=== PATIENT | male | born 1955 | race Asian ===

== ENCOUNTER 2023-01-25 12:30 | Inpatient (IN) | payer OTHER ==
[~2023-01-25] VITALS: Ht 179.1 cm; Wt 130.8 kg
[~2023-01-25 12:30] MED LIST: ALBMDI INH; AMIO200T68 PO; AZIT500T10 PO; CARV12.548 PO; CYAN25006 SL; DAPA10TA PO; DICL100G60 TP; FEOSOL; FEOSOL PO; FLUT1BLS3 INH; FOLI0.4T6 PO; FURO-149 PO; LEVO100C4 PO; MULT-1117 PO; SODI10PO PO; VITA100T6 PO; VITA1CAP PO; WARF4TAB72 PO
[2023-01-25 12:43] VITALS: BP_SYST 140; PULSE 96; RESP 20; TEMP 97.8; O2SAT 89
[2023-01-25 14:16] LABS: ABG O2 SAT% ESTIMATE 93.4 % (94.0-100.0); BLOOD GAS HCO3 19.9 mmol/L (21.0-27.0); BLOOD GAS PCO2 39.1 mmHg (32.0-45.0); BLOOD GAS PH 7.325 (7.350-7.450); BLOOD GAS PO2 71.7 mmHg (75.0-100.0)
[2023-01-25 14:17] LABS: ALLEN'S TEST POSITIVE (P); BLOOD GAS BASE EXCESS -5.6 mmol/L (-3.0-3.0)
[2023-01-25 14:50] LABS: BASOPHILS % (AUTO) 0.5 % (0.0-2.0); EOSINOPHILS % (AUTO) 0.2 % (0.0-4.0); HEMOGLOBIN 11.7 g/dL (14.0-18.0); LYMPHOCYTES # (AUTO) 0.5 K/uL (1.0-5.5); LYMPHOCYTES % (AUTO) 13.4 % (20.5-51.5); MEAN CORPUSCULAR HEMOGLOBIN 33 pg (27-31); MEAN CORPUSCULAR HGB CONC 32 % (32-36); MEAN CORPUSCULAR VOLUME 103 fL (79.0-98.0); MONOCYTES # (AUTO) 0.5 K/uL (0.0-1.0); MONOCYTES % (AUTO) 13.6 % (1.7-9.3); NEUTROPHILS # (AUTO) 2.8 K/uL (1.8-7.7); NEUTROPHILS % (AUTO) 72.3 % (40.0-70.0); PLATELET COUNT (AUTO) 116 K/uL (130-430); RED BLOOD CELL COUNT(AUTO) 3.58 MIL/uL (4.2-6.2); RED CELL DISTRIBUTION WIDTH 15.6 % (9.0-15.0); WHITE BLOOD COUNT (AUTO) 3.9 K/uL (4.8-10.8)
[2023-01-25 14:59] LABS: ALANINE AMINOTRANSFERASE 118 U/L (12-78); ANION GAP 8 (5-15); ASPARTATE AMINOTRANSFERASE 162 U/L (10-37); CALCIUM 8.1 mg/dL (8.4-11.0); CARBON DIOXIDE 22 mmol/L (23-29); CHLORIDE 102 mmol/L (98-107); CREATININE 1.26 mg/dL (0.55-1.30); GFR AFRICAN AMERICAN 73 mL/min (>90); GFR NON AFRICAN-AMERICAN 61 mL/min (>90); GLUCOSE 119 mg/dL (74-106); POTASSIUM 4.3 mmol/L (3.5-5.1); SODIUM SERUM 132 mmol/L (136-145); TOTAL BILIRUBIN 1.5 mg/dL (0.0-1.0); TOTAL PROTEIN, SERUM 8.1 g/dL (6.4-8.3); UREA NITROGEN, BLOOD 26 mg/dL (8-21)
[2023-01-25] MEDS ORDERED: FUROSEMIDE 40 MG/4 ML VIAL IVP ONE (15:45)
[2023-01-25] MEDS ORDERED: ONDANSETRON HCL 4 MG/2 ML VIAL IVP PRN ×2 (16:30→19:45)
[2023-01-25 17:28] VITALS: PULSE 84; O2SAT 99
[2023-01-25] MEDS ORDERED: SPIRONOLACTONE 25 MG TABLET (ALDACTONE) PO ONE (17:30)
[2023-01-25 18:52] LABS: BILIRUBIN,URINE NEGATIVE (NEGATIVE); BLOOD, URINE 1+ (NEGATIVE); CLARITY/URINE CLEAR (CLEAR); COLOR,URINE YELLOW (YELLOW); GLUCOSE,URINE TRACE (NEGATIVE); KETONES,URINE NEGATIVE (NEGATIVE); LEUKOCYTE ESTERASE ,URINE NEGATIVE (NEGATIVE); NITRITE, URINE NEGATIVE (NEGATIVE); PROTEIN URINE 2+ (NEGATIVE)
[2023-01-25 19:20] LABS: BACTERIA,URINE FEW /HPF (None Seen); RBC,URINE 0-3 /HPF (0-3); WBC,URINE 0-3 /HPF (0-3)
[2023-01-25 19:21] LABS: COARSE GRANULAR CASTS,URINE 0-10 /LPF (None Seen); FINE GRANULAR CASTS,URINE 0-10 /LPF (None Seen); MUCUS,URINE None Seen /LPF (None Seen)
[2023-01-25] MEDS ORDERED: ACETAMINOPHEN 325 MG TABLET PO PRN ×2 (19:45→20:00)
[2023-01-25] MEDS ORDERED: HYDROcodone/ACETAMIN 5-325 MG TAB (NORCO/ VICODIN) PO PRN ×2 (19:45→20:00)
[2023-01-25] MEDS ORDERED: NACL 0.9% 1,000 ML IV SCH (20:00)
[2023-01-25] MEDS: ALBUTEROL SULFATE 0.083% 2.5 MG/3 ML VIAL.NEB INH SCH (20:03)
[2023-01-25] MEDS: BUDESONIDE 0.5 MG/2 ML AMPUL.NEB INH SCH (20:04)
[2023-01-25] MEDS ORDERED: MULTIVITAMINS TAB 1 TABLET PO ONE (20:30)
[2023-01-25 21:36] VITALS: BP_SYST 131; PULSE 93; RESP 20; TEMP 99; O2SAT 96
[2023-01-25] MEDS ORDERED: AZITHROMYCIN 500 MG/VIAL (ZITHROMAX) IV ONE (23:32)
[2023-01-25] MEDS ORDERED: cefTRIAXone 1 GM VIAL ONE (23:32)
[2023-01-25] MEDS: AZITHROMYCIN 500 MG in NS 250 ML IV SCH (23:57)
[2023-01-25] MEDS: ASCORBIC ACID 500 MG TABLET PO SCH (23:58)
[2023-01-26] VITALS (10 sets, daily range): BP systolic 110–114; PULSE 64–93; RESP 18–22; TEMP 98–100.2; O2SAT 96–100
[2023-01-26] MEDS: cefTRIAXone 1 GM in D5W 50 ML IV SCH ×2 (00:47→22:33)
[2023-01-26] MEDS: ALBUTEROL SULFATE 0.083% 2.5 MG/3 ML VIAL.NEB INH SCH ×4 (01:38→19:31)
[2023-01-26 04:29] LABS: BASOPHILS % (AUTO) 0.3 % (0.0-2.0); EOSINOPHILS % (AUTO) 0.1 % (0.0-4.0); HEMATOCRIT 37.5 % (36-54); HEMOGLOBIN 11.7 g/dL (14.0-18.0); LYMPHOCYTES # (AUTO) 0.5 K/uL (1.0-5.5); LYMPHOCYTES % (AUTO) 11.5 % (20.5-51.5); MEAN CORPUSCULAR HEMOGLOBIN 32 pg (27-31); MEAN CORPUSCULAR HGB CONC 31 % (32-36); MEAN CORPUSCULAR VOLUME 104 fL (79.0-98.0); MONOCYTES # (AUTO) 0.6 K/uL (0.0-1.0); MONOCYTES % (AUTO) 13.1 % (1.7-9.3); NEUTROPHILS # (AUTO) 3.2 K/uL (1.8-7.7); PLATELET COUNT (AUTO) 117 K/uL (130-430); RED BLOOD CELL COUNT(AUTO) 3.62 MIL/uL (4.2-6.2); RED CELL DISTRIBUTION WIDTH 15.6 % (9.0-15.0); WHITE BLOOD COUNT (AUTO) 4.2 K/uL (4.8-10.8)
[2023-01-26 04:44] LABS: ALBUMIN 3.1 g/dL (3.4-4.8); CALCIUM 8.7 mg/dL (8.4-11.0); CREATININE 1.42 mg/dL (0.55-1.30); POTASSIUM 3.8 mmol/L (3.5-5.1); TOTAL BILIRUBIN 1.6 mg/dL (0.0-1.0); TOTAL PROTEIN, SERUM 8.3 g/dL (6.4-8.3)
[2023-01-26 06:52] LABS: INR 6.4 (0.80-1.20); PROTHROMBIN TIME 60.6 SECS (9.5-12.5)
[2023-01-26] MEDS: BUDESONIDE 0.5 MG/2 ML AMPUL.NEB INH SCH ×2 (08:18→19:32)
[2023-01-26] MEDS ORDERED: FLUTICASONE/VILANTEROL 1 EACH BLST.W.DEV INH SCH (09:00)
[2023-01-26] MEDS ORDERED: DAPAGLIFLOZIN PROPANEDIOL NF 5 MG TABLET PO SCH (09:00)
[2023-01-26] MEDS ORDERED: CARVEDILOL 12.5 MG TABLET (COREG) PO SCH (09:00)
[2023-01-26] MEDS ORDERED: FUROSEMIDE 20 MG/2 ML VIAL IVP SCH (09:00)
[2023-01-26] MEDS ORDERED: ASCORBIC ACID 500 MG TABLET PO SCH (09:00)
[2023-01-26] MEDS: EMPAGLIFLOZIN 10 MG TABLET PO SCH (10:11)
[2023-01-26] MEDS: MULTIVITAMINS TAB 1 TABLET PO SCH (10:13)
[2023-01-26] MEDS: LORATADINE 10 MG TABLET PO SCH (10:15)
[2023-01-26] MEDS: ASCORBIC ACID 500 MG TABLET PO SCH ×2 (10:15→21:10)
[2023-01-26] MEDS: ASPIRIN 81 MG TAB.CHEW PO SCH (10:15)
[2023-01-26] MEDS: DEXAMETHASONE SOD PHOSPHATE 10 MG/ML VIAL IVP SCH (10:16)
[2023-01-26] MEDS ORDERED: FUROSEMIDE 20 MG/2 ML VIAL IVP ONE (12:00)
[2023-01-26] MEDS ORDERED: WARFARIN SODIUM 4 MG TABLET PO SCH (18:00)
[2023-01-26] MEDS: FUROSEMIDE 40 MG/4 ML VIAL IVP SCH (21:11)
[2023-01-26] MEDS: AZITHROMYCIN 500 MG in NS 250 ML IV SCH (23:01)
[2023-01-27] VITALS (11 sets, daily range): BP systolic 107–116; PULSE 80–99; RESP 16–20; TEMP 97.7–98.2; O2SAT 90–100
[2023-01-27] MEDS: ALBUTEROL SULFATE 0.083% 2.5 MG/3 ML VIAL.NEB INH SCH ×4 (04:16→20:18)
[2023-01-27 06:00] LABS: BASOPHILS % (AUTO) 0.3 % (0.0-2.0); EOSINOPHILS % (AUTO) 0.1 % (0.0-4.0); HEMATOCRIT 38.1 % (36-54); HEMOGLOBIN 11.8 g/dL (14.0-18.0); LYMPHOCYTES # (AUTO) 0.3 K/uL (1.0-5.5); LYMPHOCYTES % (AUTO) 8.3 % (20.5-51.5); MEAN CORPUSCULAR HEMOGLOBIN 32 pg (27-31); MEAN CORPUSCULAR HGB CONC 31 % (32-36); MEAN CORPUSCULAR VOLUME 102 fL (79.0-98.0); MONOCYTES # (AUTO) 0.5 K/uL (0.0-1.0); MONOCYTES % (AUTO) 13.4 % (1.7-9.3); NEUTROPHILS # (AUTO) 2.6 K/uL (1.8-7.7); NEUTROPHILS % (AUTO) 77.9 % (40.0-70.0); PLATELET COUNT (AUTO) 108 K/uL (130-430); RED BLOOD CELL COUNT(AUTO) 3.73 MIL/uL (4.2-6.2); RED CELL DISTRIBUTION WIDTH 15.5 % (9.0-15.0); WHITE BLOOD COUNT (AUTO) 3.4 K/uL (4.8-10.8)
[2023-01-27 06:29] LABS: ALBUMIN 2.9 g/dL (3.4-4.8); CALCIUM 8.5 mg/dL (8.4-11.0); CREATININE 1.35 mg/dL (0.55-1.30); POTASSIUM 3.7 mmol/L (3.5-5.1); TOTAL BILIRUBIN 1.2 mg/dL (0.0-1.0); TOTAL PROTEIN, SERUM 7.9 g/dL (6.4-8.3)
[2023-01-27 06:59] LABS: INR 8.9 (0.80-1.20); PROTHROMBIN TIME 83.2 SECS (9.5-12.5)
[2023-01-27] MEDS: BUDESONIDE 0.5 MG/2 ML AMPUL.NEB INH SCH ×2 (07:21→20:18)
[2023-01-27] MEDS ORDERED: AMIODARONE HCL 200 MG TABLET PO SCH (09:00)
[2023-01-27] MEDS: ASPIRIN 81 MG TAB.CHEW PO SCH (09:21)
[2023-01-27] MEDS: ASCORBIC ACID 500 MG TABLET PO SCH ×2 (09:22→22:13)
[2023-01-27] MEDS: MULTIVITAMINS TAB 1 TABLET PO SCH (09:22)
[2023-01-27] MEDS: FUROSEMIDE 40 MG/4 ML VIAL IVP SCH ×2 (09:23→22:13)
[2023-01-27] MEDS: LORATADINE 10 MG TABLET PO SCH (09:23)
[2023-01-27] MEDS: DEXAMETHASONE SOD PHOSPHATE 10 MG/ML VIAL IVP SCH (09:26)
[2023-01-27] MEDS: EMPAGLIFLOZIN 10 MG TABLET PO SCH (09:28)
[2023-01-27] MEDS ORDERED: PHYTONADIONE 10 MG/ML AMP SUBCUT ONE (10:30)
[2023-01-27 17:06] LABS: HEPATITIS A AB, IgM Negative (Negative); HEPATITIS B CORE AB, IgM Negative (Negative); HEPATITIS B SURFACE AG Negative (Negative)
[2023-01-27] MEDS: cefTRIAXone 1 GM in D5W 50 ML IV SCH (22:12)
[2023-01-27] MEDS: AZITHROMYCIN 500 MG in NS 250 ML IV SCH (22:14)
[2023-01-28] VITALS (9 sets, daily range): BP systolic 102–117; PULSE 89–106; RESP 18–20; TEMP 97.7–98.1; O2SAT 96–100
[2023-01-28] MEDS: ALBUTEROL SULFATE 0.083% 2.5 MG/3 ML VIAL.NEB INH SCH ×3 (01:35→12:06)
[2023-01-28 06:25] LABS: BASOPHILS % (AUTO) 0.1 % (0.0-2.0); HEMATOCRIT 35.7 % (36-54); HEMOGLOBIN 11.3 g/dL (14.0-18.0); LYMPHOCYTES # (AUTO) 0.3 K/uL (1.0-5.5); LYMPHOCYTES % (AUTO) 5.1 % (20.5-51.5); MEAN CORPUSCULAR HEMOGLOBIN 32 pg (27-31); MEAN CORPUSCULAR HGB CONC 32 % (32-36); MEAN CORPUSCULAR VOLUME 102 fL (79.0-98.0); MONOCYTES # (AUTO) 0.7 K/uL (0.0-1.0); MONOCYTES % (AUTO) 11.2 % (1.7-9.3); NEUTROPHILS # (AUTO) 4.9 K/uL (1.8-7.7); NEUTROPHILS % (AUTO) 83.6 % (40.0-70.0); PLATELET COUNT (AUTO) 107 K/uL (130-430); RED BLOOD CELL COUNT(AUTO) 3.52 MIL/uL (4.2-6.2); RED CELL DISTRIBUTION WIDTH 15.3 % (9.0-15.0); WHITE BLOOD COUNT (AUTO) 5.8 K/uL (4.8-10.8)
[2023-01-28 06:34] LABS: PROTHROMBIN TIME 20.1 SECS (9.5-12.5)
[2023-01-28 07:01] LABS: ALBUMIN 2.9 g/dL (3.4-4.8); CALCIUM 8.3 mg/dL (8.4-11.0); CREATININE 1.32 mg/dL (0.55-1.30); POTASSIUM 3.5 mmol/L (3.5-5.1); TOTAL BILIRUBIN 1.4 mg/dL (0.0-1.0); TOTAL PROTEIN, SERUM 7.9 g/dL (6.4-8.3)
[2023-01-28 07:07] LABS: FOLATE (FOLIC ACID) >20.0 ng/mL (>3.0)
[2023-01-28 07:07] LABS: HEPATITIS C VIRUS AB Non Reactive (Non Reactive)
[2023-01-28] MEDS: BUDESONIDE 0.5 MG/2 ML AMPUL.NEB INH SCH (07:36)
[2023-01-28] MEDS ORDERED: PHYTONADIONE Non-Formulary 5 MG TABLET PO SCH (09:00)
[2023-01-28] MEDS: ASCORBIC ACID 500 MG TABLET PO SCH (09:29)
[2023-01-28] MEDS: LORATADINE 10 MG TABLET PO SCH (09:29)
[2023-01-28] MEDS: ASPIRIN 81 MG TAB.CHEW PO SCH (09:29)
[2023-01-28] MEDS: MULTIVITAMINS TAB 1 TABLET PO SCH (09:29)
[2023-01-28] MEDS: DEXAMETHASONE SOD PHOSPHATE 10 MG/ML VIAL IVP SCH (09:30)
[2023-01-28] MEDS: FUROSEMIDE 40 MG/4 ML VIAL IVP SCH (09:30)
[2023-01-28] MEDS: EMPAGLIFLOZIN 10 MG TABLET PO SCH ×2 (09:36→09:50)
[2023-01-28] MEDS ORDERED: PHYTONADIONE (Vitamin K) Oral Solution PO SCH (11:00)
[2023-01-28] MEDS ORDERED: FURO-149 PO (12:50)
[2023-01-28] MEDS ORDERED: ZIT250 PO (12:55)
[2023-01-28] MEDS ORDERED: METH-776 PO (12:55)
[2023-01-28] MEDS ORDERED: FLU VACC QS2023-24(6MOS UP)/PF 0.5 ML/SYR SYRINGE I.M. ONE (13:30)
[2023-01-28] MEDS ORDERED: FUROSEMIDE 40 MG TABLET PO SCH (21:00)
== END 2023-01-28 16:50 | disposition home or self-care (01) | DRG 177 ==
LOC: SED 12:30 → STU 16:17
PROVIDERS: ADMIT Family Medicine; ATTEND Family Medicine
DX: U07.1 COVID-19 (principal); I50.33 Acute on chronic diastolic (congestive) heart failure; J96.01 Acute respiratory failure with hypoxia; Z68.41 Body mass index [BMI] 40.0-44.9, adult; E87.1 Hypo-osmolality and hyponatremia; I13.0 Hypertensive heart and chronic kidney disease with heart failure and stage 1 through stage 4 chronic kidney disease, or unspecified chronic kidney disease; E44.1 Mild protein-calorie malnutrition; E03.9 Hypothyroidism, unspecified; E66.01 Morbid (severe) obesity due to excess calories; D69.6 Thrombocytopenia, unspecified; R74.01 Elevation of levels of liver transaminase levels; N18.9 Chronic kidney disease, unspecified; E11.22 Type 2 diabetes mellitus with diabetic chronic kidney disease; I35.0 Nonrheumatic aortic (valve) stenosis; E86.0 Dehydration; Z79.899 Other long term (current) drug therapy
CPT/HCPCS: 36415; 36600; 71046-TC; 76705; 80053; 80074; 81000; 81001; 81015; 82607; 82746; 82803; 83880; 84484; 85025; 85379; 85610-TC; 85730-TC; 87040; 93005; 94010; 94640; 94760; 96374; 99291; G0378; J0456; J0696; J1100; J1940; J3430; J7050; J7060; J7626

== ENCOUNTER 2023-03-03 21:57 | Inpatient (IN) | payer OTHER ==
[~2023-03-03] VITALS: Ht 177.8 cm; Wt 136.1 kg
[~2023-03-03 21:57] MED LIST changes: -AZIT500T10 PO; -CARV12.548 PO; -FEOSOL; -FEOSOL PO; -LEVO100C4 PO; +METH-776 PO; +ZIT250 PO
[2023-03-03 22:05] VITALS: BP_SYST 104; PULSE 89; RESP 20; TEMP 97; O2SAT 99
[2023-03-04 00:28] LABS: BASOPHILS % (AUTO) 0.3 % (0.0-2.0); EOSINOPHILS # (AUTO) 0.2 K/uL (0.0-0.4); EOSINOPHILS % (AUTO) 1.2 % (0.0-4.0); HEMATOCRIT 33.7 % (36-54); HEMOGLOBIN 11.1 g/dL (14.0-18.0); LYMPHOCYTES # (AUTO) 0.3 K/uL (1.0-5.5); LYMPHOCYTES % (AUTO) 2.2 % (20.5-51.5); MEAN CORPUSCULAR HEMOGLOBIN 34 pg (27-31); MEAN CORPUSCULAR HGB CONC 33 % (32-36); MEAN CORPUSCULAR VOLUME 104 fL (79.0-98.0); MONOCYTES # (AUTO) 0.9 K/uL (0.0-1.0); MONOCYTES % (AUTO) 6.1 % (1.7-9.3); NEUTROPHILS # (AUTO) 13.6 K/uL (1.8-7.7); NEUTROPHILS % (AUTO) 90.2 % (40.0-70.0); PLATELET COUNT (AUTO) 179 K/uL (130-430); RED BLOOD CELL COUNT(AUTO) 3.24 MIL/uL (4.2-6.2); RED CELL DISTRIBUTION WIDTH 17.2 % (9.0-15.0); WHITE BLOOD COUNT (AUTO) 15.1 K/uL (4.8-10.8)
[2023-03-04 01:14] LABS: ANION GAP 7 (5-15); CALCIUM 8.1 mg/dL (8.4-11.0); CARBON DIOXIDE 31 mmol/L (23-29); CHLORIDE 93 mmol/L (98-107); CREATININE 3.16 mg/dL (0.55-1.30); GFR AFRICAN AMERICAN 25 mL/min (>90); GLUCOSE 104 mg/dL (74-106); SODIUM SERUM 131 mmol/L (136-145); UREA NITROGEN, BLOOD 75 mg/dL (8-21)
[2023-03-04] MEDS ORDERED: HYDROcodone/ACETAMIN 5-325 MG TAB (NORCO/ VICODIN) PO ONE ×2 (01:15→06:15)
[2023-03-04 01:27] LABS: GFR NON AFRICAN-AMERICAN 21 mL/min (>90); POTASSIUM 5.8 mmol/L (3.5-5.1)
[2023-03-04] MEDS ORDERED: ALBU2.5V7 HHN (01:31)
[2023-03-04] MEDS ORDERED: FURO40TA5 PO (01:31)
[2023-03-04] MEDS ORDERED: DAPA5TAB PO (01:31)
[2023-03-04] MEDS ORDERED: FLUT16SP16 NS (01:31)
[2023-03-04] MEDS ORDERED: METO5TAB7 PO (01:31)
[2023-03-04] MEDS ORDERED: FLUT50BL IH (01:32)
[2023-03-04] MEDS ORDERED: FUROSEMIDE 100 MG/10 ML VIAL IVP ONE (01:45)
[2023-03-04] MEDS ORDERED: SODIUM ZIRCONIUM CYCLOSILICATE 10 GM POWD.PACK PO ONE (01:45)
[2023-03-04 01:49] LABS: PROTHROMBIN TIME 47.5 SECS (9.5-12.5)
[2023-03-04 01:50] LABS: INR 4.9 (0.80-1.20)
[2023-03-04 02:49] LABS: BILIRUBIN,URINE NEGATIVE (NEGATIVE); BLOOD, URINE NEGATIVE (NEGATIVE); COLOR,URINE YELLOW (YELLOW); GLUCOSE,URINE NEGATIVE (NEGATIVE); KETONES,URINE NEGATIVE (NEGATIVE); LEUKOCYTE ESTERASE ,URINE NEGATIVE (NEGATIVE); NITRITE, URINE NEGATIVE (NEGATIVE); PH,URINE 5.5 (5.0-8.0); PROTEIN URINE TRACE (NEGATIVE); UROBILINOGEN,URINE 0.2 (0.2-1.0)
[2023-03-04 02:57] LABS: CLARITY/URINE HAZY (CLEAR)
[2023-03-04 02:58] LABS: BACTERIA,URINE None Seen /HPF (None Seen); RBC,URINE 0-3 /HPF (0-3); WBC,URINE 0-3 /HPF (0-3)
[2023-03-04 02:59] LABS: HYALINE CASTS, URINE 0-10 /LPF (None Seen)
[2023-03-04 08:07] LABS: INR 4.2 (0.80-1.20); PROTHROMBIN TIME 40.7 SECS (9.5-12.5)
[2023-03-04] MEDS ORDERED: PIPERACILLIN/TAZOBACTAM 2.25 GM/ D5W 50 ML IV SCH ×2 (12:00)
[2023-03-04] MEDS ORDERED: FUROSEMIDE 100 MG in D5W 90 ML IV SCH (14:30)
[2023-03-04] MEDS ORDERED: FUROSEMIDE 40 MG/4 ML VIAL IVP ONE (15:00)
[2023-03-04] MEDS ORDERED: metOLazone 5 MG TABLET PO ONE (15:00)
[2023-03-04] MEDS ORDERED: FUROSEMIDE 100 MG in D5W 90 ML IV ONE (15:30)
[2023-03-04] MEDS ORDERED: ALBUMIN HUMAN 5% 250 ML IV ONE (18:00)
[2023-03-04] MEDS: FUROSEMIDE 100 MG in D5W 90 ML IV SCH (23:30)
[2023-03-05] MEDS: ceFAZolin SODIUM 2 GM in D5W 100 ML IV SCH ×3 (00:46→21:12)
[2023-03-05 00:58] VITALS: BP_SYST 108; PULSE 96; RESP 20; TEMP 97.2; O2SAT 97
[2023-03-05 05:41] LABS: BASOPHILS % (AUTO) 0.2 % (0.0-2.0); HEMATOCRIT 33.9 % (36-54); LYMPHOCYTES # (AUTO) 0.3 K/uL (1.0-5.5); LYMPHOCYTES % (AUTO) 2.4 % (20.5-51.5); MEAN CORPUSCULAR HEMOGLOBIN 34 pg (27-31); MEAN CORPUSCULAR HGB CONC 32 % (32-36); MEAN CORPUSCULAR VOLUME 104 fL (79.0-98.0); MONOCYTES % (AUTO) 8.3 % (1.7-9.3); NEUTROPHILS % (AUTO) 89.1 % (40.0-70.0); PLATELET COUNT (AUTO) 160 K/uL (130-430); RED BLOOD CELL COUNT(AUTO) 3.26 MIL/uL (4.2-6.2); RED CELL DISTRIBUTION WIDTH 17.7 % (9.0-15.0); WHITE BLOOD COUNT (AUTO) 12.3 K/uL (4.8-10.8)
[2023-03-05 06:02] LABS: CALCIUM 8.7 mg/dL (8.4-11.0); CREATININE 3.1 mg/dL (0.55-1.30); POTASSIUM 4.9 mmol/L (3.5-5.1)
[2023-03-05 06:05] LABS: ALBUMIN 2.9 g/dL (3.4-4.8); TOTAL PROTEIN, SERUM 8.2 g/dL (6.4-8.3)
[2023-03-05 08:00] VITALS: O2SAT 95
[2023-03-05] MEDS: FUROSEMIDE 100 MG in D5W 90 ML IV SCH ×3 (09:47→22:19)
[2023-03-05 11:26] LABS: CHLORIDE,URINE RANDOM 31 mmol/L (55-125); POTASSIUM,URINE RANDOM 82 mmol/L (12-75)
[2023-03-05 12:12] VITALS: BP_SYST 105; PULSE 84; RESP 19; TEMP 97.4; O2SAT 97
[2023-03-05] MEDS ORDERED: metOLazone 5 MG TABLET PO ONE (12:30)
[2023-03-05 15:35] LABS: BASOPHILS % (AUTO) 0.3 % (0.0-2.0); EOSINOPHILS % (AUTO) 0.2 % (0.0-4.0); HEMATOCRIT 34.6 % (36-54); HEMOGLOBIN 11.4 g/dL (14.0-18.0); LYMPHOCYTES # (AUTO) 0.3 K/uL (1.0-5.5); MEAN CORPUSCULAR HEMOGLOBIN 34 pg (27-31); MEAN CORPUSCULAR HGB CONC 33 % (32-36); MEAN CORPUSCULAR VOLUME 104 fL (79.0-98.0); MONOCYTES % (AUTO) 9.7 % (1.7-9.3); NEUTROPHILS # (AUTO) 8.9 K/uL (1.8-7.7); NEUTROPHILS % (AUTO) 86.8 % (40.0-70.0); PLATELET COUNT (AUTO) 154 K/uL (130-430); RED BLOOD CELL COUNT(AUTO) 3.32 MIL/uL (4.2-6.2); WHITE BLOOD COUNT (AUTO) 10.2 K/uL (4.8-10.8)
[2023-03-05 16:11] VITALS: BP_SYST 101; PULSE 89; RESP 20; TEMP 97.3; O2SAT 98
[2023-03-05] MEDS: traMADol HCL HCL 50 MG TABLET (ULTRAM) PO PRN (17:03)
[2023-03-05] MEDS: DOPamine PREMIX 250 ML IV PRN (17:45)
[2023-03-05 21:00] VITALS: BP_SYST 110; PULSE 112; RESP 20; O2SAT 97
[2023-03-06] VITALS (9 sets, daily range): BP systolic 111–120; PULSE 102–115; RESP 18–22; TEMP 97.3–98.1; O2SAT 95–100
[2023-03-06] MEDS: FUROSEMIDE 100 MG in D5W 90 ML IV SCH ×5 (04:18→23:11)
[2023-03-06 07:46] LABS: ALBUMIN 2.9 g/dL (3.4-4.8); CALCIUM 8.3 mg/dL (8.4-11.0); CREATININE 2.67 mg/dL (0.55-1.30); POTASSIUM 4.5 mmol/L (3.5-5.1); TOTAL PROTEIN, SERUM 7.7 g/dL (6.4-8.3)
[2023-03-06] MEDS: ceFAZolin SODIUM 2 GM in D5W 100 ML IV SCH ×2 (09:45→21:17)
[2023-03-06] MEDS ORDERED: FUROSEMIDE 100 MG in D5W 90 ML IV SCH (12:46)
[2023-03-06 18:22] LABS: INR 3.8 (0.80-1.20)
[2023-03-06] MEDS: traMADol HCL HCL 50 MG TABLET (ULTRAM) PO PRN (19:17)
[2023-03-06] MEDS: DOPamine PREMIX 250 ML IV PRN (23:07)
[2023-03-07] VITALS (8 sets, daily range): BP systolic 111–130; PULSE 78–99; RESP 16–20; TEMP 96.5–98.2; O2SAT 96–100
[2023-03-07] MEDS: FUROSEMIDE 100 MG in D5W 90 ML IV SCH ×6 (03:09→22:37)
[2023-03-07] MEDS: traMADol HCL HCL 50 MG TABLET (ULTRAM) PO PRN ×2 (03:10→13:28)
[2023-03-07 06:25] LABS: BASOPHILS % (AUTO) 0.2 % (0.0-2.0); EOSINOPHILS % (AUTO) 0.2 % (0.0-4.0); HEMATOCRIT 35.9 % (36-54); HEMOGLOBIN 11.8 g/dL (14.0-18.0); LYMPHOCYTES # (AUTO) 0.4 K/uL (1.0-5.5); LYMPHOCYTES % (AUTO) 4.7 % (20.5-51.5); MEAN CORPUSCULAR HEMOGLOBIN 34 pg (27-31); MEAN CORPUSCULAR HGB CONC 33 % (32-36); MEAN CORPUSCULAR VOLUME 103 fL (79.0-98.0); MONOCYTES # (AUTO) 0.9 K/uL (0.0-1.0); MONOCYTES % (AUTO) 10.7 % (1.7-9.3); NEUTROPHILS # (AUTO) 7.3 K/uL (1.8-7.7); NEUTROPHILS % (AUTO) 84.2 % (40.0-70.0); PLATELET COUNT (AUTO) 164 K/uL (130-430); RED BLOOD CELL COUNT(AUTO) 3.47 MIL/uL (4.2-6.2); RED CELL DISTRIBUTION WIDTH 17.2 % (9.0-15.0); WHITE BLOOD COUNT (AUTO) 8.7 K/uL (4.8-10.8)
[2023-03-07 06:36] LABS: INR 3.4 (0.80-1.20); PROTHROMBIN TIME 33.3 SECS (9.5-12.5)
[2023-03-07 07:04] LABS: ALBUMIN 3.1 g/dL (3.4-4.8); CALCIUM 8.9 mg/dL (8.4-11.0); CREATININE 2.84 mg/dL (0.55-1.30); POTASSIUM 3.5 mmol/L (3.5-5.1); TOTAL BILIRUBIN 1.9 mg/dL (0.0-1.0); TOTAL PROTEIN, SERUM 8.8 g/dL (6.4-8.3)
[2023-03-07] MEDS: ceFAZolin SODIUM 2 GM in D5W 100 ML IV SCH ×2 (09:06→22:36)
[2023-03-07] MEDS ORDERED: MORPHINE 2 MG/ML INJ. SYRINGE IVP PRN (15:30)
[2023-03-07] MEDS ORDERED: NALOXONE HCL 0.4 MG/ML AMP (NARCAN) IVP PRN (15:30)
[2023-03-07] MEDS ORDERED: ACETAMINOPHEN 500 MG TABLET PO PRN (15:30)
[2023-03-07] MEDS: MELATONIN 5 MG TABLET PO SCH (21:00)
[2023-03-07] MEDS: HYDROcodone/ACETAMIN 5-325 MG TAB (NORCO/ VICODIN) PO PRN (22:38)
[2023-03-08] VITALS (7 sets, daily range): BP systolic 98–109; PULSE 86–101; RESP 16–18; TEMP 96.9–97.6; O2SAT 95–100
[2023-03-08 05:52] LABS: EOSINOPHILS % (AUTO) 0.3 % (0.0-4.0); HEMATOCRIT 33.8 % (36-54); HEMOGLOBIN 11.3 g/dL (14.0-18.0); LYMPHOCYTES # (AUTO) 0.3 K/uL (1.0-5.5); LYMPHOCYTES % (AUTO) 3.5 % (20.5-51.5); MEAN CORPUSCULAR HEMOGLOBIN 34 pg (27-31); MEAN CORPUSCULAR HGB CONC 33 % (32-36); MEAN CORPUSCULAR VOLUME 102 fL (79.0-98.0); MONOCYTES # (AUTO) 0.9 K/uL (0.0-1.0); MONOCYTES % (AUTO) 11.7 % (1.7-9.3); NEUTROPHILS # (AUTO) 6.6 K/uL (1.8-7.7); NEUTROPHILS % (AUTO) 84.5 % (40.0-70.0); PLATELET COUNT (AUTO) 145 K/uL (130-430); RED BLOOD CELL COUNT(AUTO) 3.32 MIL/uL (4.2-6.2); RED CELL DISTRIBUTION WIDTH 16.5 % (9.0-15.0); WHITE BLOOD COUNT (AUTO) 7.8 K/uL (4.8-10.8)
[2023-03-08 06:46] LABS: CALCIUM 8.6 mg/dL (8.4-11.0); CREATININE 2.83 mg/dL (0.55-1.30); POTASSIUM 3.7 mmol/L (3.5-5.1); TOTAL BILIRUBIN 1.8 mg/dL (0.0-1.0); TOTAL PROTEIN, SERUM 8.6 g/dL (6.4-8.3)
[2023-03-08] MEDS: ceFAZolin SODIUM 2 GM in D5W 100 ML IV SCH ×2 (08:45→20:56)
[2023-03-08] MEDS: FUROSEMIDE 100 MG in D5W 90 ML IV SCH ×3 (08:46→20:55)
[2023-03-08 11:48] LABS: INR 3.3 (0.80-1.20); PROTHROMBIN TIME 32.4 SECS (9.5-12.5)
[2023-03-08] MEDS ORDERED: DAPAGLIFLOZIN PROPANEDIOL NF 5 MG TABLET PO SCH (13:30)
[2023-03-08] MEDS: traMADol HCL HCL 50 MG TABLET (ULTRAM) PO PRN (18:15)
[2023-03-08] MEDS: DOPamine PREMIX 250 ML IV PRN (20:55)
[2023-03-08] MEDS: MELATONIN 5 MG TABLET PO SCH (20:56)
[2023-03-08] MEDS: HYDROcodone/ACETAMIN 5-325 MG TAB (NORCO/ VICODIN) PO PRN (21:18)
[2023-03-09 01:00] VITALS: BP_SYST 112; PULSE 97; RESP 20; TEMP 97.5; O2SAT 99
[2023-03-09 07:03] LABS: BASOPHILS % (AUTO) 0.2 % (0.0-2.0); EOSINOPHILS % (AUTO) 0.2 % (0.0-4.0); HEMATOCRIT 32.9 % (36-54); LYMPHOCYTES # (AUTO) 0.3 K/uL (1.0-5.5); LYMPHOCYTES % (AUTO) 3.4 % (20.5-51.5); MEAN CORPUSCULAR HEMOGLOBIN 34 pg (27-31); MEAN CORPUSCULAR HGB CONC 33 % (32-36); MEAN CORPUSCULAR VOLUME 102 fL (79.0-98.0); MONOCYTES % (AUTO) 11.5 % (1.7-9.3); NEUTROPHILS # (AUTO) 7.7 K/uL (1.8-7.7); NEUTROPHILS % (AUTO) 84.7 % (40.0-70.0); PLATELET COUNT (AUTO) 153 K/uL (130-430); RED BLOOD CELL COUNT(AUTO) 3.23 MIL/uL (4.2-6.2); RED CELL DISTRIBUTION WIDTH 16.3 % (9.0-15.0); WHITE BLOOD COUNT (AUTO) 9.1 K/uL (4.8-10.8)
[2023-03-09 07:15] LABS: INR 2.6 (0.80-1.20); PROTHROMBIN TIME 26.1 SECS (9.5-12.5)
[2023-03-09 07:56] LABS: ALBUMIN 2.7 g/dL (3.4-4.8); CALCIUM 8.4 mg/dL (8.4-11.0); CREATININE 2.9 mg/dL (0.55-1.30); POTASSIUM 3.3 mmol/L (3.5-5.1); TOTAL BILIRUBIN 1.9 mg/dL (0.0-1.0); TOTAL PROTEIN, SERUM 8.2 g/dL (6.4-8.3)
[2023-03-09 08:00] VITALS: BP_SYST 110; PULSE 76; RESP 18; TEMP 97.7; O2SAT 100; O2SAT 4
[2023-03-09 08:46] VITALS: BP_SYST 112; PULSE 97; O2SAT 99
[2023-03-09] MEDS: DAPAGLIFLOZIN 10 MG PO SCH (09:00)
[2023-03-09] MEDS: ceFAZolin SODIUM 2 GM in D5W 100 ML IV SCH ×2 (09:07→22:08)
[2023-03-09] MEDS: FUROSEMIDE 100 MG in D5W 90 ML IV SCH ×3 (09:27→19:05)
[2023-03-09] MEDS ORDERED: POTASSIUM CHLORIDE 20 MEQ TABLET.ER PO ONE (11:00)
[2023-03-09 11:30] VITALS: BP_SYST 115; PULSE 81; RESP 19; TEMP 97.9; O2SAT 97
[2023-03-09] MEDS: DOPamine PREMIX 250 ML IV PRN (14:24)
[2023-03-09 17:12] VITALS: BP_SYST 101; PULSE 98; RESP 19; TEMP 98.2; O2SAT 100
[2023-03-09 20:00] VITALS: BP_SYST 107; PULSE 97; RESP 19; TEMP 97.2; O2SAT 97
[2023-03-09] MEDS: MELATONIN 5 MG TABLET PO SCH (21:00)
[2023-03-09] MEDS ORDERED: *LOVENOX 1MG/KG Q12H/PHARMACY XX ONE (21:00)
[2023-03-09] MEDS: HYDROcodone/ACETAMIN 5-325 MG TAB (NORCO/ VICODIN) PO PRN (22:19)
[2023-03-09] MEDS: ENOXAPARIN SODIUM SUBCUT SCH ×2 (22:20)
[2023-03-10] VITALS (8 sets, daily range): BP systolic 102–110; PULSE 82–104; RESP 16–20; TEMP 97–98.2; O2SAT 94–100
[2023-03-10] MEDS: FUROSEMIDE 100 MG in D5W 90 ML IV SCH ×2 (01:05→13:45)
[2023-03-10 05:04] LABS: BASOPHILS % (AUTO) 0.1 % (0.0-2.0); EOSINOPHILS % (AUTO) 0.3 % (0.0-4.0); HEMATOCRIT 31.9 % (36-54); HEMOGLOBIN 10.7 g/dL (14.0-18.0); LYMPHOCYTES # (AUTO) 0.3 K/uL (1.0-5.5); LYMPHOCYTES % (AUTO) 3.9 % (20.5-51.5); MEAN CORPUSCULAR HEMOGLOBIN 34 pg (27-31); MEAN CORPUSCULAR HGB CONC 34 % (32-36); MEAN CORPUSCULAR VOLUME 101 fL (79.0-98.0); MONOCYTES % (AUTO) 12.1 % (1.7-9.3); NEUTROPHILS # (AUTO) 6.6 K/uL (1.8-7.7); NEUTROPHILS % (AUTO) 83.6 % (40.0-70.0); PLATELET COUNT (AUTO) 143 K/uL (130-430); RED BLOOD CELL COUNT(AUTO) 3.17 MIL/uL (4.2-6.2); RED CELL DISTRIBUTION WIDTH 16.8 % (9.0-15.0); WHITE BLOOD COUNT (AUTO) 7.9 K/uL (4.8-10.8)
[2023-03-10 05:23] LABS: CALCIUM 8.4 mg/dL (8.4-11.0); CREATININE 2.73 mg/dL (0.55-1.30)
[2023-03-10 05:50] LABS: POTASSIUM 2.8 mmol/L (3.5-5.1)
[2023-03-10] MEDS ORDERED: POTASSIUM CHLORIDE 30 MEQ in NS 250 ML IV SCH (08:00)
[2023-03-10] MEDS: DOPamine PREMIX 250 ML IV PRN (08:38)
[2023-03-10] MEDS ORDERED: POTASSIUM CHLORIDE 40 MEQ, LIDOCAINE JECT 2% PF 100 MG 75 MG in NS 250 ML IV ONE (11:00)
[2023-03-10] MEDS: DAPAGLIFLOZIN 10 MG PO SCH (11:21)
[2023-03-10] MEDS: ALBUMIN HUMAN 25% 50 ML IV SCH ×3 (11:22→20:38)
[2023-03-10] MEDS: ENOXAPARIN SODIUM SUBCUT SCH ×4 (11:22→20:38)
[2023-03-10] MEDS: HYDROcodone/ACETAMIN 5-325 MG TAB (NORCO/ VICODIN) PO PRN ×2 (11:59→20:45)
[2023-03-10] MEDS: DOXYCYCLINE HYCLATE 100 MG CAPSULE PO SCH (20:39)
[2023-03-10] MEDS: MELATONIN 5 MG TABLET PO SCH (20:39)
[2023-03-11] VITALS (7 sets, daily range): BP systolic 108–149; PULSE 97–117; RESP 16–19; TEMP 97–98.2; O2SAT 97–100
[2023-03-11] MEDS: FUROSEMIDE 100 MG in D5W 90 ML IV SCH (02:08)
[2023-03-11 04:37] LABS: BASOPHILS % (AUTO) 0.2 % (0.0-2.0); EOSINOPHILS % (AUTO) 0.3 % (0.0-4.0); HEMATOCRIT 30.7 % (36-54); HEMOGLOBIN 10.2 g/dL (14.0-18.0); LYMPHOCYTES # (AUTO) 0.3 K/uL (1.0-5.5); LYMPHOCYTES % (AUTO) 3.3 % (20.5-51.5); MEAN CORPUSCULAR HEMOGLOBIN 34 pg (27-31); MEAN CORPUSCULAR HGB CONC 33 % (32-36); MEAN CORPUSCULAR VOLUME 101 fL (79.0-98.0); MONOCYTES # (AUTO) 0.8 K/uL (0.0-1.0); MONOCYTES % (AUTO) 8.1 % (1.7-9.3); NEUTROPHILS # (AUTO) 8.7 K/uL (1.8-7.7); NEUTROPHILS % (AUTO) 88.1 % (40.0-70.0); PLATELET COUNT (AUTO) 136 K/uL (130-430); RED BLOOD CELL COUNT(AUTO) 3.04 MIL/uL (4.2-6.2); RED CELL DISTRIBUTION WIDTH 16.9 % (9.0-15.0); WHITE BLOOD COUNT (AUTO) 9.9 K/uL (4.8-10.8)
[2023-03-11 05:09] LABS: CALCIUM 8.3 mg/dL (8.4-11.0); CREATININE 2.42 mg/dL (0.55-1.30)
[2023-03-11 05:59] LABS: POTASSIUM 2.8 mmol/L (3.5-5.1)
[2023-03-11] MEDS: ENOXAPARIN SODIUM SUBCUT SCH ×4 (08:39→21:00)
[2023-03-11] MEDS: DAPAGLIFLOZIN 10 MG PO SCH (08:42)
[2023-03-11] MEDS: DOXYCYCLINE HYCLATE 100 MG CAPSULE PO SCH ×2 (08:42→21:43)
[2023-03-11] MEDS ORDERED: POTASSIUM CHLORIDE 40 MEQ in NS 250 ML IV ONE (09:00)
[2023-03-11] MEDS: HYDROcodone/ACETAMIN 5-325 MG TAB (NORCO/ VICODIN) PO PRN (18:39)
[2023-03-11] MEDS: MELATONIN 5 MG TABLET PO SCH (21:43)
[2023-03-12] VITALS (7 sets, daily range): BP systolic 100–125; PULSE 78–117; RESP 17–19; TEMP 96.8–97.1; O2SAT 94–100
[2023-03-12] MEDS ORDERED: DOPamine PREMIX 250 ML IV ONE (01:17)
[2023-03-12] MEDS: FUROSEMIDE 100 MG in D5W 90 ML IV SCH (01:20)
[2023-03-12] MEDS: DOPamine PREMIX 250 ML IV PRN (01:21)
[2023-03-12] MEDS: HYDROcodone/ACETAMIN 5-325 MG TAB (NORCO/ VICODIN) PO PRN ×3 (01:29→23:47)
[2023-03-12 04:34] LABS: BASOPHILS % (AUTO) 0.3 % (0.0-2.0); EOSINOPHILS % (AUTO) 0.1 % (0.0-4.0); LYMPHOCYTES # (AUTO) 0.4 K/uL (1.0-5.5); MEAN CORPUSCULAR HEMOGLOBIN 34 pg (27-31); MEAN CORPUSCULAR HGB CONC 33 % (32-36); MEAN CORPUSCULAR VOLUME 101 fL (79.0-98.0); MONOCYTES # (AUTO) 0.8 K/uL (0.0-1.0); MONOCYTES % (AUTO) 6.5 % (1.7-9.3); NEUTROPHILS # (AUTO) 11.6 K/uL (1.8-7.7); NEUTROPHILS % (AUTO) 90.1 % (40.0-70.0); PLATELET COUNT (AUTO) 154 K/uL (130-430); RED BLOOD CELL COUNT(AUTO) 2.97 MIL/uL (4.2-6.2); RED CELL DISTRIBUTION WIDTH 16.5 % (9.0-15.0); WHITE BLOOD COUNT (AUTO) 12.9 K/uL (4.8-10.8)
[2023-03-12 05:04] LABS: CALCIUM 8.4 mg/dL (8.4-11.0); CREATININE 2.58 mg/dL (0.55-1.30)
[2023-03-12 05:09] LABS: POTASSIUM 2.8 mmol/L (3.5-5.1)
[2023-03-12] MEDS: DAPAGLIFLOZIN 10 MG PO SCH (08:07)
[2023-03-12] MEDS: DOXYCYCLINE HYCLATE 100 MG CAPSULE PO SCH ×2 (08:07→22:55)
[2023-03-12] MEDS ORDERED: KCL 40 mEq in 100 mL (PREMIX) 100 ML IV ONE (10:00)
[2023-03-12] MEDS ORDERED: *HEPARIN PER PHARMACY XX ONE ×2 (11:00→11:45)
[2023-03-12] MEDS: POTASSIUM CHLORIDE 20 mEq in 100 mL (PREMIX) 100 ML x 2 doses IV SCH ×2 (11:05→14:04)
[2023-03-12] MEDS ORDERED: TRANEXAMIC ACID 1,000 MG/10 ML VIAL TP ONE (11:15)
[2023-03-12] MEDS ORDERED: BUMEX 1 MG/4 ML VIAL IVP ONE (11:30)
[2023-03-12 13:19] LABS: INR 1.7 (0.80-1.20); PROTHROMBIN TIME 17.3 SECS (9.5-12.5)
[2023-03-12] MEDS ORDERED: HEPARIN SODIUM,PORCINE 5,000 UNITS/ML VIAL SUBCUT SCH (14:00)
[2023-03-12 17:05] LABS: BASOPHILS % (AUTO) 0.2 % (0.0-2.0); EOSINOPHILS % (AUTO) 0.1 % (0.0-4.0); HEMATOCRIT 29.5 % (36-54); HEMOGLOBIN 9.7 g/dL (14.0-18.0); LYMPHOCYTES # (AUTO) 0.3 K/uL (1.0-5.5); LYMPHOCYTES % (AUTO) 2.1 % (20.5-51.5); MEAN CORPUSCULAR HEMOGLOBIN 33 pg (27-31); MEAN CORPUSCULAR HGB CONC 33 % (32-36); MEAN CORPUSCULAR VOLUME 101 fL (79.0-98.0); MONOCYTES # (AUTO) 1.1 K/uL (0.0-1.0); MONOCYTES % (AUTO) 7.2 % (1.7-9.3); NEUTROPHILS % (AUTO) 90.4 % (40.0-70.0); PLATELET COUNT (AUTO) 143 K/uL (130-430); RED BLOOD CELL COUNT(AUTO) 2.92 MIL/uL (4.2-6.2); RED CELL DISTRIBUTION WIDTH 16.7 % (9.0-15.0); WHITE BLOOD COUNT (AUTO) 15.5 K/uL (4.8-10.8)
[2023-03-12] MEDS: MELATONIN 5 MG TABLET PO SCH (22:55)
[2023-03-12] MEDS: BUMEX 1 MG/4 ML VIAL IVP SCH (22:56)
[2023-03-13] VITALS (8 sets, daily range): BP systolic 101–111; PULSE 89–110; RESP 18–22; TEMP 96.5–98.4; O2SAT 98–100
[2023-03-13 05:39] LABS: BASOPHILS % (AUTO) 0.1 % (0.0-2.0); HEMATOCRIT 26.7 % (36-54); HEMOGLOBIN 8.9 g/dL (14.0-18.0); LYMPHOCYTES # (AUTO) 0.5 K/uL (1.0-5.5); LYMPHOCYTES % (AUTO) 2.9 % (20.5-51.5); MEAN CORPUSCULAR HEMOGLOBIN 33 pg (27-31); MEAN CORPUSCULAR HGB CONC 33 % (32-36); MEAN CORPUSCULAR VOLUME 100 fL (79.0-98.0); MONOCYTES # (AUTO) 1.2 K/uL (0.0-1.0); MONOCYTES % (AUTO) 7.2 % (1.7-9.3); NEUTROPHILS # (AUTO) 14.9 K/uL (1.8-7.7); NEUTROPHILS % (AUTO) 89.8 % (40.0-70.0); PLATELET COUNT (AUTO) 143 K/uL (130-430); RED BLOOD CELL COUNT(AUTO) 2.66 MIL/uL (4.2-6.2); RED CELL DISTRIBUTION WIDTH 16.6 % (9.0-15.0); WHITE BLOOD COUNT (AUTO) 16.6 K/uL (4.8-10.8)
[2023-03-13 06:15] LABS: CALCIUM 8.5 mg/dL (8.4-11.0); CREATININE 2.64 mg/dL (0.55-1.30)
[2023-03-13] MEDS: DOXYCYCLINE HYCLATE 100 MG CAPSULE PO SCH ×2 (08:46→21:53)
[2023-03-13] MEDS: HYDROcodone/ACETAMIN 5-325 MG TAB (NORCO/ VICODIN) PO PRN (08:47)
[2023-03-13] MEDS: DAPAGLIFLOZIN 10 MG PO SCH (08:49)
[2023-03-13] MEDS: BUMEX 1 MG/4 ML VIAL IVP SCH ×3 (08:57→21:55)
[2023-03-13] MEDS ORDERED: HEPARIN 25,000 UNITS/D5W 250ML 250 ML IV PRN (10:15)
[2023-03-13] MEDS ORDERED: POTASSIUM CHLORIDE 20 MEQ TABLET.ER PO ONE (10:15)
[2023-03-13] MEDS ORDERED: HEPARIN SODIUM,PORCINE 2000 UNITS/0.4 ML BOLUS IVP PRN (11:15)
[2023-03-13] MEDS ORDERED: HEPARIN SODIUM,PORCINE 3000 UNITS/0.6 ML BOLUS IVP PRN (11:15)
[2023-03-13] MEDS ORDERED: HEPARIN SODIUM,PORCINE 5,000 UNITS/ML VIAL MC ONE ×2 (12:30→15:30)
[2023-03-13] MEDS: traMADol HCL HCL 50 MG TABLET (ULTRAM) PO PRN (18:06)
[2023-03-13] MEDS: HEPARIN 25,000 UNITS in 250 ML PREMIX IV PRN (18:40)
[2023-03-13] MEDS: DOPamine PREMIX 250 ML IV PRN (18:48)
[2023-03-13] MEDS: MEROPENEM 500 MG IVPB PREMIX 50 ML IV SCH ×2 (18:59→21:54)
[2023-03-13] MEDS: MELATONIN 5 MG TABLET PO SCH (21:53)
[2023-03-13] MEDS: IPRATROPIUM/ALBUTEROL SULFATE 3 ML AMPUL.NEB (DUONEB) INH PRN (23:30)
[2023-03-14 01:04] VITALS: BP_SYST 103; PULSE 98; RESP 19; TEMP 96.8; O2SAT 100
[2023-03-14 04:37] LABS: HEMATOCRIT 25.6 % (36-54); HEMOGLOBIN 8.3 g/dL (14.0-18.0); LYMPHOCYTES # (AUTO) 0.3 K/uL (1.0-5.5); LYMPHOCYTES % (AUTO) 1.3 % (20.5-51.5); MEAN CORPUSCULAR HEMOGLOBIN 33 pg (27-31); MEAN CORPUSCULAR HGB CONC 32 % (32-36); MEAN CORPUSCULAR VOLUME 103 fL (79.0-98.0); MONOCYTES # (AUTO) 1.6 K/uL (0.0-1.0); MONOCYTES % (AUTO) 6.6 % (1.7-9.3); NEUTROPHILS # (AUTO) 22.3 K/uL (1.8-7.7); NEUTROPHILS % (AUTO) 92.1 % (40.0-70.0); PLATELET COUNT (AUTO) 135 K/uL (130-430); RED BLOOD CELL COUNT(AUTO) 2.49 MIL/uL (4.2-6.2); WHITE BLOOD COUNT (AUTO) 24.2 K/uL (4.8-10.8)
[2023-03-14 04:40] LABS: CALCIUM 8.5 mg/dL (8.4-11.0); CREATININE 2.79 mg/dL (0.55-1.30); POTASSIUM 4.2 mmol/L (3.5-5.1)
[2023-03-14] MEDS: HEPARIN 25,000 UNITS in 250 ML PREMIX IV PRN ×3 (06:12→20:47)
[2023-03-14] MEDS: MEROPENEM 500 MG IVPB PREMIX 50 ML IV SCH ×3 (06:23→23:18)
[2023-03-14] MEDS: traMADol HCL HCL 50 MG TABLET (ULTRAM) PO PRN ×2 (07:01→13:58)
[2023-03-14 08:12] VITALS: BP_SYST 103; PULSE 106; RESP 18; TEMP 98.4; O2SAT 98
[2023-03-14] MEDS: BUMEX 1 MG/4 ML VIAL IVP SCH ×2 (09:00→20:53)
[2023-03-14] MEDS: DOXYCYCLINE HYCLATE 100 MG CAPSULE PO SCH ×2 (09:37→20:52)
[2023-03-14] MEDS: DAPAGLIFLOZIN 10 MG PO SCH (09:38)
[2023-03-14 11:30] VITALS: BP_SYST 116; PULSE 101; RESP 20; TEMP 98.4; O2SAT 100
[2023-03-14] MEDS ORDERED: ALBUMIN HUMAN 25% 50 ML IV SCH ×2 (12:00→13:00)
[2023-03-14] MEDS ORDERED: NYSTATIN 30 GM TOPICAL CREAM TP ONE ×2 (12:30→21:00)
[2023-03-14] MEDS ORDERED: ALBUMIN HUMAN 25% 200 ML IV ONE (14:30)
[2023-03-14] MEDS ORDERED: VANCOMYCIN HCL 1,250 MG in NS 250 ML IV ONE ×2 (17:00→20:00)
[2023-03-14 17:29] VITALS: BP_SYST 114; PULSE 106; RESP 20; TEMP 98; O2SAT 99
[2023-03-14 20:05] VITALS: BP_SYST 102; PULSE 103; RESP 20; TEMP 97.2; O2SAT 99
[2023-03-14] MEDS ORDERED: DOPamine PREMIX 250 ML IV ONE (20:41)
[2023-03-14] MEDS: DOPamine PREMIX 250 ML IV PRN (20:52)
[2023-03-14] MEDS: MELATONIN 5 MG TABLET PO SCH (20:52)
[2023-03-15] VITALS (13 sets, daily range): BP systolic 78–123; PULSE 72–120; RESP 16–22; TEMP 95.5–98.9; O2SAT 94–100
[2023-03-15 03:04] LABS: BASOPHILS % (AUTO) 0.2 % (0.0-2.0); HEMATOCRIT 23.6 % (36-54); HEMOGLOBIN 7.6 g/dL (14.0-18.0); LYMPHOCYTES # (AUTO) 0.4 K/uL (1.0-5.5); LYMPHOCYTES % (AUTO) 1.9 % (20.5-51.5); MEAN CORPUSCULAR HEMOGLOBIN 34 pg (27-31); MEAN CORPUSCULAR HGB CONC 32 % (32-36); MEAN CORPUSCULAR VOLUME 105 fL (79.0-98.0); MONOCYTES # (AUTO) 1.5 K/uL (0.0-1.0); NEUTROPHILS % (AUTO) 90.9 % (40.0-70.0); PLATELET COUNT (AUTO) 99 K/uL (130-430); RED BLOOD CELL COUNT(AUTO) 2.26 MIL/uL (4.2-6.2); RED CELL DISTRIBUTION WIDTH 17.6 % (9.0-15.0)
[2023-03-15 03:28] LABS: CALCIUM 8.8 mg/dL (8.4-11.0); CREATININE 3.35 mg/dL (0.55-1.30); POTASSIUM 4.9 mmol/L (3.5-5.1); VANCOMYCIN,RANDOM 24.7 ug/mL (20.0-30.0)
[2023-03-15] MEDS: HEPARIN 25,000 UNITS in 250 ML PREMIX IV PRN ×2 (04:03→14:00)
[2023-03-15] MEDS: MEROPENEM 500 MG IVPB PREMIX 50 ML IV SCH ×3 (05:50→22:29)
[2023-03-15] MEDS: DOXYCYCLINE HYCLATE 100 MG CAPSULE PO SCH ×2 (09:26→21:30)
[2023-03-15] MEDS: BUMEX 1 MG/4 ML VIAL IVP SCH ×2 (10:28→21:00)
[2023-03-15 10:44] LABS: HEMATOCRIT 22.6 % (36-54); HEMOGLOBIN 7.1 g/dL (14.0-18.0); MEAN CORPUSCULAR HEMOGLOBIN 33 pg (27-31); MEAN CORPUSCULAR HGB CONC 31 % (32-36); MEAN CORPUSCULAR VOLUME 107 fL (79.0-98.0); PLATELET COUNT (AUTO) 109 K/uL (130-430); RED BLOOD CELL COUNT(AUTO) 2.12 MIL/uL (4.2-6.2); RED CELL DISTRIBUTION WIDTH 17.6 % (9.0-15.0); WHITE BLOOD COUNT (AUTO) 22.4 K/uL (4.8-10.8)
[2023-03-15] MEDS: DAPAGLIFLOZIN 10 MG PO SCH (10:58)
[2023-03-15 12:03] LABS: ANISOCYTOSIS 1+; BASOPHILS % (MANUAL) 0 % (0-2); EOSINOPHILS % (MANUAL) 0 % (0-7); LYMPHOCYTES % (MANUAL) 3 % (20-46); MONOCYTES % (MANUAL) 10 % (0-11); PLATELET ESTIMATE DECREASED (ADEQUATE); POLYCHROMASIA SLIGHT
[2023-03-15] MEDS: IPRATROPIUM/ALBUTEROL SULFATE 3 ML AMPUL.NEB (DUONEB) INH PRN (19:32)
[2023-03-15] MEDS ORDERED: DOPamine PREMIX 250 ML IV ONE (20:43)
[2023-03-15] MEDS: MELATONIN 5 MG TABLET PO SCH (21:00)
[2023-03-15] MEDS ORDERED: NS 250 ML IV ONE (21:30)
[2023-03-15] MEDS ORDERED: ALBUMIN HUMAN 25% 50 ML IV ONE (21:30)
[2023-03-15] MEDS: DOPamine PREMIX 250 ML IV PRN (21:30)
[2023-03-16] VITALS (27 sets, daily range): BP systolic 59–115; PULSE 84–128; RESP 15–35; TEMP 93.7–98.2; O2SAT 94–100
[2023-03-16] MEDS ORDERED: NOREPINEPHRINE BITARTRATE 16 MG in NS 234 ML IV PRN (01:30)
[2023-03-16 05:50] LABS: BASOPHILS % (AUTO) 0.2 % (0.0-2.0); EOSINOPHILS % (AUTO) 0.1 % (0.0-4.0); HEMATOCRIT 25.4 % (36-54); HEMOGLOBIN 8.1 g/dL (14.0-18.0); LYMPHOCYTES # (AUTO) 0.8 K/uL (1.0-5.5); LYMPHOCYTES % (AUTO) 3.3 % (20.5-51.5); MEAN CORPUSCULAR HEMOGLOBIN 34 pg (27-31); MEAN CORPUSCULAR HGB CONC 32 % (32-36); MEAN CORPUSCULAR VOLUME 107 fL (79.0-98.0); MONOCYTES # (AUTO) 1.6 K/uL (0.0-1.0); MONOCYTES % (AUTO) 6.3 % (1.7-9.3); NEUTROPHILS # (AUTO) 23.2 K/uL (1.8-7.7); NEUTROPHILS % (AUTO) 90.1 % (40.0-70.0); PLATELET COUNT (AUTO) 118 K/uL (130-430); RED BLOOD CELL COUNT(AUTO) 2.37 MIL/uL (4.2-6.2); RED CELL DISTRIBUTION WIDTH 17.6 % (9.0-15.0); WHITE BLOOD COUNT (AUTO) 25.7 K/uL (4.8-10.8)
[2023-03-16 06:11] LABS: CALCIUM 9.3 mg/dL (8.4-11.0); CREATININE 4.47 mg/dL (0.55-1.30); POTASSIUM 5.1 mmol/L (3.5-5.1); VANCOMYCIN,RANDOM 15.4 ug/mL (20.0-30.0)
[2023-03-16] MEDS: MEROPENEM 500 MG IVPB PREMIX 50 ML IV SCH (06:12)
[2023-03-16] MEDS: MIDODRINE HCL 5 MG TABLET (PROAMATINE) PO SCH ×3 (09:55→21:00)
[2023-03-16] MEDS: DOXYCYCLINE HYCLATE 100 MG CAPSULE PO SCH ×2 (09:55→21:00)
[2023-03-16] MEDS: DAPAGLIFLOZIN 10 MG PO SCH (09:56)
[2023-03-16] MEDS: BUMEX 1 MG/4 ML VIAL IVP SCH ×2 (10:00→21:00)
[2023-03-16] MEDS ORDERED: PHENYLEPHRINE HCL 50 MG in NS 245 ML IV PRN (10:30)
[2023-03-16] MEDS ORDERED: PROPOFOL DRIP 100 ML IV PRN (11:15)
[2023-03-16] MEDS ORDERED: PROPOFOL DRIP 100 ML IV ONE (11:24)
[2023-03-16] MEDS ORDERED: CEFEPIME 2 GM in D5W 100 ML IV SCH (12:00)
[2023-03-16] MEDS ORDERED: PANTOPRAZOLE SODIUM 40 MG/VIAL (PROTONIX) IVP ONE (12:00)
[2023-03-16] MEDS: HEPARIN 25,000 UNITS in 250 ML PREMIX IV PRN (12:17)
[2023-03-16 13:14] LABS: ABG O2 SAT% ESTIMATE 99.8 % (94.0-100.0); BLOOD GAS BASE EXCESS -16.8 mmol/L (-3.0-3.0); BLOOD GAS PO2 458.3 mmHg (75.0-100.0)
[2023-03-16 13:28] LABS: ALLEN'S TEST POSITIVE (P); BLOOD GAS PH 7.142 (7.350-7.450)
[2023-03-16] MEDS ORDERED: NS IV PRN (14:00)
[2023-03-16] MEDS ORDERED: PHENYLEPHRINE HCL IV PRN (14:00)
[2023-03-16] MEDS: VASOPRESSIN 40 UNITS in NS 38 ML IV PRN ×2 (15:41→18:00)
[2023-03-16] MEDS: PHENYLEPHRINE HCL 100 MG in NS 240 ML IV PRN ×3 (16:08→23:37)
[2023-03-16] MEDS ORDERED: SODIUM BICARBONATE 8.4% JECT 50 MEQ/50 ML SYRINGE IVP ONE (16:15)
[2023-03-16 17:34] LABS: HEMATOCRIT 22.4 % (36-54); MEAN CORPUSCULAR HEMOGLOBIN 33 pg (27-31); MEAN CORPUSCULAR HGB CONC 30 % (32-36); MEAN CORPUSCULAR VOLUME 110 fL (79.0-98.0); PLATELET COUNT (AUTO) 85 K/uL (130-430); RED BLOOD CELL COUNT(AUTO) 2.03 MIL/uL (4.2-6.2); RED CELL DISTRIBUTION WIDTH 18.2 % (9.0-15.0); WHITE BLOOD COUNT (AUTO) 22.8 K/uL (4.8-10.8)
[2023-03-16 17:37] LABS: ALBUMIN 2.8 g/dL (3.4-4.8); CALCIUM 8.3 mg/dL (8.4-11.0); CREATININE 5.35 mg/dL (0.55-1.30); TOTAL BILIRUBIN 6.9 mg/dL (0.0-1.0); TOTAL PROTEIN, SERUM 6.4 g/dL (6.4-8.3)
[2023-03-16 17:44] LABS: HEMOGLOBIN 6.8 g/dL (14.0-18.0)
[2023-03-16] MEDS ORDERED: NOREPINEPHR 16 MG/250 mL NS 250 ML IV PRN (17:45)
[2023-03-16] MEDS ORDERED: DEXTROSE 50% JECT 50 ML DISP.SYRIN ONE (17:56)
[2023-03-16] MEDS ORDERED: DEXTROSE 50% JECT 50 ML DISP.SYRIN IVP ONE (18:00)
[2023-03-16 18:03] LABS: POTASSIUM 5.7 mmol/L (3.5-5.1)
[2023-03-16] MEDS ORDERED: SODIUM BICARBONATE 8.4% JECT 150 MEQ in D5W 1,000 ML IVP SCH (18:30)
[2023-03-16] MEDS ORDERED: SODIUM BICARBONATE 8.4% JECT 100 MEQ in D5W 1,000 ML IVP SCH (18:30)
[2023-03-16] MEDS ORDERED: DEXTROSE 50% JECT 50 ML DISP.SYRIN IVP PRN (19:00)
[2023-03-16] MEDS: DOPamine PREMIX 250 ML IV PRN (19:41)
[2023-03-16 19:43] LABS: BAND % (MANUAL) 2 % (0-6); BASOPHILS % (MANUAL) 0 % (0-2); CORRECTED WHITE BLOOD COUNT 21.1 K/uL (4.5-11.0); EOSINOPHILS % (MANUAL) 0 % (0-7); LYMPHOCYTES % (MANUAL) 1 % (20-46); MONOCYTES % (MANUAL) 6 % (0-11)
[2023-03-16 19:44] LABS: ANISOCYTOSIS 1+; PLATELET ESTIMATE DECREASED (ADEQUATE)
[2023-03-16 19:45] LABS: POLYCHROMASIA 2+
[2023-03-16] MEDS: IPRATROPIUM/ALBUTEROL SULFATE 3 ML AMPUL.NEB (DUONEB) INH PRN (20:18)
[2023-03-16] MEDS ORDERED: DOPamine PREMIX 250 ML IV PRN (20:30)
[2023-03-16] MEDS ORDERED: ALBUMIN HUMAN 25% 100 ML IV ONE ×3 (20:41→22:00)
[2023-03-16] MEDS ORDERED: ALBUMIN HUMAN 25% 200 ML IV ONE (20:45)
[2023-03-16] MEDS: MELATONIN 5 MG TABLET PO SCH (21:00)
[2023-03-16] MEDS: NOREPINEPHRINE BITARTRATE 32 MG in NS 218 ML IV PRN (21:36)
[2023-03-16] MEDS ORDERED: EPINEPHrine HCL 1 MG/ML VIAL ONE (22:32)
[2023-03-16] MEDS: EPINEPHrine HCL 10 MG in NS 240 ML IV PRN (22:46)
[2023-03-17] VITALS: BP_SYST 56; PULSE 77; RESP 18; TEMP 95; O2SAT 95; O2SAT 98
[2023-03-17] MEDS: NOREPINEPHRINE BITARTRATE 32 MG in NS 218 ML IV PRN (00:17)
[2023-03-17 00:50] LABS: BASOPHILS # (AUTO) 0.4 K/uL (0.0-0.2); HEMATOCRIT 29.7 % (36-54); HEMOGLOBIN 8.2 g/dL (14.0-18.0); LYMPHOCYTES # (AUTO) 1.9 K/uL (1.0-5.5); LYMPHOCYTES % (AUTO) 5.4 % (20.5-51.5); MEAN CORPUSCULAR HEMOGLOBIN 33 pg (27-31); MEAN CORPUSCULAR HGB CONC 28 % (32-36); MEAN CORPUSCULAR VOLUME 118 fL (79.0-98.0); MONOCYTES # (AUTO) 1.7 K/uL (0.0-1.0); MONOCYTES % (AUTO) 4.8 % (1.7-9.3); NEUTROPHILS # (AUTO) 31.3 K/uL (1.8-7.7); NEUTROPHILS % (AUTO) 88.8 % (40.0-70.0); PLATELET COUNT (AUTO) 71 K/uL (130-430); RED BLOOD CELL COUNT(AUTO) 2.51 MIL/uL (4.2-6.2); RED CELL DISTRIBUTION WIDTH 21.6 % (9.0-15.0)
[2023-03-17] MEDS ORDERED: EPINEPHrine HCL 1 MG/ML VIAL ONE (00:51)
[2023-03-17 00:52] LABS: WHITE BLOOD COUNT (AUTO) 35.3 K/uL (4.8-10.8)
[2023-03-17] MEDS: EPINEPHrine HCL 10 MG in NS 240 ML IV PRN (00:57)
[2023-03-17 01:00] VITALS: BP_SYST 73; PULSE 75; RESP 15; O2SAT 90
[2023-03-17] MEDS ORDERED: CALCIUM CHLORIDE 1 GM/10 ML DISP.SYRIN (14 mEq Ca++/SYR) ONE (01:32)
[2023-03-17] MEDS ORDERED: EPINEPHrine JECT 0.1 MG/ML SYR ONE (01:37)
[2023-03-17] MEDS ORDERED: SODIUM BICARBONATE 8.4% JECT 50 MEQ/50 ML SYRINGE IVP ONE (01:42)
[2023-03-17] MEDS ORDERED: EPINEPHrine HCL 1 MG/ML VIAL IV ONE (01:42)
[2023-03-17] MEDS ORDERED: PANTOPRAZOLE SODIUM 40 MG/VIAL (PROTONIX) IVP SCH (09:00)
== END 2023-03-17 01:43 | DRG 871 ==
LOC: SED 21:57 → STU 03-04 02:35 → SIC 03-15 21:29
PROVIDERS: ADMIT Specialist; ATTEND Specialist
PROC: 02HV33Z Insertion of Infusion Device into Superior Vena Cava, Percutaneous Approach (ICD-10-PCS; 2023-03-13)
PROC: B548ZZA Ultrasonography of Superior Vena Cava, Guidance (ICD-10-PCS; 2023-03-13)
PROC: 5A1D70Z Performance of Urinary Filtration, Intermittent, Less than 6 Hours Per Day (ICD-10-PCS; 2023-03-13)
PROC: 5A1D70Z Performance of Urinary Filtration, Intermittent, Less than 6 Hours Per Day (ICD-10-PCS; 2023-03-14)
PROC: 5A12012 Performance of Cardiac Output, Single, Manual (ICD-10-PCS; principal; 2023-03-16)
PROC: 30233N1 Transfusion of Nonautologous Red Blood Cells into Peripheral Vein, Percutaneous Approach (ICD-10-PCS; 2023-03-16)
PROC: 0BH17EZ Insertion of Endotracheal Airway into Trachea, Via Natural or Artificial Opening (ICD-10-PCS; 2023-03-16)
PROC: 5A1935Z Respiratory Ventilation, Less than 24 Consecutive Hours (ICD-10-PCS; 2023-03-16)
PROC: 5A12012 Performance of Cardiac Output, Single, Manual (ICD-10-PCS; 2023-03-17)
DX: A41.51 Sepsis due to Escherichia coli [E. coli] (principal); I50.43 Acute on chronic combined systolic (congestive) and diastolic (congestive) heart failure; R65.21 Severe sepsis with septic shock; J96.21 Acute and chronic respiratory failure with hypoxia; L03.115 Cellulitis of right lower limb; N17.9 Acute kidney failure, unspecified; L03.116 Cellulitis of left lower limb; Z68.41 Body mass index [BMI] 40.0-44.9, adult; I42.9 Cardiomyopathy, unspecified; I13.0 Hypertensive heart and chronic kidney disease with heart failure and stage 1 through stage 4 chronic kidney disease, or unspecified chronic kidney disease; N18.4 Chronic kidney disease, stage 4 (severe); I89.0 Lymphedema, not elsewhere classified; I87.2 Venous insufficiency (chronic) (peripheral); I35.0 Nonrheumatic aortic (valve) stenosis; I46.9 Cardiac arrest, cause unspecified; E66.01 Morbid (severe) obesity due to excess calories; E87.5 Hyperkalemia; S80.821A Blister (nonthermal), right lower leg, initial encounter; X58.XXXA Exposure to other specified factors, initial encounter; Z79.899 Other long term (current) drug therapy; Z79.2 Long term (current) use of antibiotics; Z79.01 Long term (current) use of anticoagulants; Y93.89 Activity, other specified; Y92.89 Other specified places as the place of occurrence of the external cause; Y99.8 Other external cause status
CPT/HCPCS: 36415; 71045; 72170-TC; 76770; 78707; 80048; 80053; 80202; 81000; 81001; 81015; 82435; 82570; 82962; 83605; 83735; 83880; 84100; 84302; 84484; 84999; 85007; 85025; 85027; 85379; 85610-TC; 85651-TC; 85730-TC; 86886; 86900; 86901; 86920; 87040; 87070-TC; 87075-TC; 87081; 87205-TC; 90935; 90937; 92950; 93005; 94003; 94640; 94760; 97110-GP; 97116-GP; 97530-GP; 99285; A9562; C9113; G0378; J0171; J0692; J0696; J1265; J1644; J1650; J1940; J2185; J2370; J2543; J2704; J3370; J3480; J3490; J7050; J7060; P9021; P9041; P9046